=== PATIENT | male | born 1990 | race Caucasian/White ===

== ENCOUNTER 2018-06-28 14:07 | Inpatient (IN) | payer BC ==
[2018-06-28 15:05] LABS: PLATELET COUNT 431 10^3/uL (150-400)
--- NOTE | 2018-06-28 16:40 | EDPHY ---
H & P Stated Complaint: PS - SI - Personal History Current Tetanus/Diphtheria Vaccine: Yes Current Tetanus Diphtheria and Acellular Pertussis (TDAP): Yes - Medical/Surgical History Hx Asthma: No Hx Chronic Respiratory Disease: No Hx Diabetes: No Hx Cardiac Disease: No Hx Renal Disease: No Hx Cirrhosis: No Hx Alcoholism: No Hx HIV/AIDS: No Hx Splenectomy or Spleen Trauma: No - Social History Smoking Status: Former smoker Time Seen by Provider: 06/28/18 14:26 HPI/ROS: CHIEF COMPLAINT: "I just want to by drinking" HISTORY OF PRESENT ILLNESS: 27-year-old male arrives via private vehicle. States that his friends dropped him off at the ER after he made statements of suicidality while drinking alcohol today. He admits to heavy daily alcohol use. His plan to kill himself is to "drink myself to ". He denies self- injurious behavior such as burning or laceration. Denies pill overdose. Denies hallucination. Denies seizure. REVIEW OF SYSTEMS: 10 systems reviewed and negative with the exception of the elements mentioned in the history of present illness PAST MEDICAL & SURGICAL HISTORY: No pertinent medical or surgical history SOCIAL HISTORY: Positive for heavy alcohol use today. PHYSICAL EXAM (Prior to examination, patient consented to physical exam, hands were washed and my usual and customary physical exam procedures followed) 1) GENERAL: Well-developed, well-nourished, alert and oriented. Smells of alcohol. 2) HEAD: Normocephalic, atraumatic 3) HEENT: Pupils equal, round, reactive to light bilaterally. Sclera anicteric. 4) NECK: Full range of motion, no meningeal signs. 5) LUNGS: Clear auscultation bilaterally, no wheezes, no rhonchi, no retractions. 6) HEART: Regular rate and rhythm, no murmur, no heave, no gallop. 7) ABDOMEN: No guarding, no rebound, no focal tenderness, 8) MUSCULOSKELETAL: Moving all extremities, no focal areas of tenderness, no obvious trauma. No peripheral edema or discoloration. 9) BACK: No CVA tenderness, no midline vertebral tenderness, no fluctuance, no step-off, no obvious trauma, no visual or palpable abnormality. 10) SKIN: No rash, no petechiae. 11) Psychiatric: Patient is oriented X 3, there is no agitation. DIFFERENTIAL DIAGNOSIS: In no particular order including but not limited to acute alcohol abuse, suicidal ideation, homicidal ideation (Gerardo Padilla) Constitutional: Initial Vital Signs Heart Rate 120 H 06/28/18 14:10 Respiratory Rate 18 06/28/18 14:10 Blood Pressure 174/112 H 06/28/18 14:10 O2 Sat (%) 99 06/28/18 14:10 O2 Delivery Mode Room Air Medical Decision Making ED Course/Re-evaluation: In consultation with secondary supervising physician Dr. Jayme Ruiz the patient was placed on M1 hold for being danger to self, endorsing suicidal ideation. 5:00 p.m.: Care turned over to Dr. Jayme Ruiz at this time. Patient sobering. Patient's alcohol level at 2:50 p.m. was 373. (Gerardo Padilla) Patient seen by me at 7:00 p.m.. He stable. He is eating dinner. He is watching TV. He understands he is awaiting sobriety and re-evaluation. Care to Dr. Yang at 10:00 p.m. (Jayme Ruiz) 7:30am: I assumed care of this patient at shift change. He presents with suicidal ideation on an M1 hold. He has been seen by mental health and felt appropriate for inpatient treatment of depression and suicidal ideation. Looking for inpatient disposition. 8:45am: accepted to [facility] by Jorge Luis Buck. EMTALA completed. (Jerica Hutton) Differential Diagnosis: Differential diagnosis includes though it is not limited to suicidal ideation, overdose, acute psychosis, self-injury, alcohol withdrawal. (Jerica Hutton) - Data Points Laboratory Results: Laboratory Results 06/28/18 14:50 06/28/18 14:50 Departure - Departure Disposition: [facility] IP Clinical Impression: Alcohol abuse, Suicidal ideation Condition: Fair Referrals: NONE *PRIMARY CARE P,. [Primary Care Provider] - As per Instructions
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
[2018-06-29] MEDS ORDERED: NICOTINE POLACRILEX 2 MG GUM B PRN (12:32)
[2018-06-29] MEDS ORDERED: MAGNESIUM HYDROXIDE 30 ML UDCUP PO PRN (12:32)
[2018-06-29] MEDS ORDERED: ACETAMINOPHEN 325 MG TAB PO PRN (12:32)
[2018-06-29] MEDS ORDERED: MAG HYDROX/AL HYDROX/SIMETH 30 ML UDCUP PO PRN (12:32)
[2018-06-29] MEDS ORDERED: PROMETHAZINE HCL 25 MG SUPPR PR PRN (12:34)
[2018-06-29] MEDS ORDERED: chlordiazePOXIDE 25 MG CAP PO PRN (12:34)
[2018-06-29] MEDS ORDERED: THIAMINE HCL 100 MG TAB PO ONE (12:34)
[2018-06-29] MEDS ORDERED: IBUPROFEN 200 MG TAB PO PRN (12:34)
[2018-06-29] MEDS ORDERED: PROMETHAZINE HCL 25 MG TAB PO PRN (12:34)
--- NOTE | 2018-06-29 14:43 | ASMTBHMTP ---
Master Treatment Plan Master Treatment Plan Answers: Depressed Mood with for: Suicidal Ideation Date: 06/29/2018 Diagnosis on Admission: Major Depressive Disorder Expected length of stay: 3-5 Days Reason for admission: Notes: Pt is a 27 year old single, male who presented to the [facility] ED by private vehicle. Pt had stated that a friend dropped him off at the ED after he made statements of suicidality while drinking alcohol today. He admits to heavy daily drinking and reported drinking today. He had reported a plan to drink himself to . Pt denied a hx of seizures. His BAL was .373 at 14/50 on 06/28/18. Pt was seen by [facility] neon sign installer on 06/29/18 am with a Breathalyzer of 0. M1 hold was initiated by Ed Physician. Per M1 hold: Mario endorses SI with a plan to drink myself to . I think he presents as an inherent danger to himself. Patient's stated presenting problems: Notes: Pt. reports having a "long week of drinking", and "almost attempted suicide". Pt. reports he was planning on overdosing on medications and alcohol. Pt. stated he called a friend, prior to attempting suicide, who brought the patient to the hospital. Patient's goals for treatment: Notes: Pt. stated he wants to "get stabilized getting self back together". Pt. reports wanting to "clarify where I want to go after this". Pt. stated he had participated in IOPs in the past and is considering attending another one upon discharge. Patient's strengths: Notes: Pt. reports he is a "very compassionate individual", "very hard worker", and "ambishious" Identify supports outside of hospital: Notes: Pt. reports feeling supported by his family, close friends and team at work. Discharge criteria: Notes: Suicidal ideation will resolve and patient will have a plan to safely manage recurrent suicidal ideation. Initial disposition plan/considerations: Notes: Pt. stated he could return home, but is considering attending an IOP or other program upon discharge. Master Treatment Plan Required Signatures Psychiatrist signature: Answers: Ebenezer Silveira MD: RN on-shift signature: Answers: RN: Patient signature: Answers: Patient: Date Signed: 06/29/2018 02:42 PM Electronically Signed By:Nimco Nielsen
--- NOTE | 2018-06-29 15:35 | ASMTCMCOM ---
CM Note CM Note Notes: CC met with pt. to complete MTP. Pt. reports he was planning on committing suicide by overdose. Pt. stated he is debating on going to IOP or inpatient program. Pt. reports attending IOPs in the past, including [facility] in November and in [place] in 2017. Pt. reports his family lives in [facility] and is considering staying with them. Pt. denies any current legal issues. Pt. reports drinking 1-2 days per week in the past, but stated he binge drank hard alcohol this past week. Pt. reports using THC edibles once a week. Pt. reports using other substances in the past, but quit years ago. Pt. reports this being his first hospitalization. Pt. stated he currently has no providers or a PCP. Pt. presents as alert, calm, slightly nervous, polite, groomed, good eye contact, and cooperative. Pt. was admitted to the unit this afternoon. CC to provider IOP information for pt. to review tonight and pt. will inform CC which program he would like to attend. Date Signed: 06/29/2018 03:34 PM Electronically Signed By:Nimco Nielsen
--- NOTE | 2018-06-29 19:23 | PDHOSCONS ---
History and Physical - Chief Complaint anxiety - History of Present Illness The patient is a 27yo M w/ PMH anxiety who presented to the ED for suicidal ideation. He has been under increased stress recently, with a recent relationship breakup and multiple family illnesses. He has felt increased anxiety and hopelessness in the last week. He has not been eating much and has been drinking in the last week to try to cope with the stress/anxiety. He has had daily chest pains associated with the stress, which he believes may be panic attacks. These episodes last up to 15 minutes and self subside. The patient thinks he has PTSD from a trauma about 5 years ago. He normally drinks 1 -2 times a week, but this week he has been drinking daily. History Information - Allergies/Home Medication List Allergies/Adverse Reactions: No Known Allergies Allergy (Verified 06/29/18 10:02) Home Medications: NK [No Known Home Meds] 06/29/18 [Last Taken Unknown] I have personally reviewed and updated: family history, medical history, social history - Past Medical History psychiatric history (Anxiety) - Surgical History Additional surgical history: [place] teeth removal, tonsil removal - Family History Positive for: cancer Additional family history: Father-substance abuse. Mother-anxiety, PTSD - Social History Smoking Status: Former smoker Alcohol Use: Other (see HPI) Drug Use: Marijuana (weekly) Additional social history: Lives with roommates. Single. Exercises regularly. Review of Systems Review of Systems: ROS: 10pt was reviewed & negative except for what was stated in HPI & below Physical Exam Physical Exam: Temp Pulse Resp BP Pulse Ox 36.9 C 77 16 155/85 H 95 06/29/18 13:34 06/29/18 17:00 06/29/18 17:00 06/29/18 17:00 06/29/18 17:00 Constitutional: no apparent distress, appears nourished Eyes: EOMI Ears, Nose, Mouth, Throat: moist mucous membranes, hearing normal, ears appear normal Cardiovascular: regular rate and rhythym, no murmur, rub, or gallop Respiratory: no respiratory distress, no rales or rhonchi Gastrointestinal: soft, non-tender abdomen, no palpable masses Genitourinary: no bladder fullness, no bladder tenderness Skin: warm, normal color Musculoskeletal: no muscle tenderness, No asymmetric calves, No abnormal gait Neurologic: AAOx3, CN II-XII Intact Psychiatric: interacting appropriately, No agitated Lymph, Heme, Immunologic: No ecchymoses, No petechiae Lab Data & Imaging Review 06/28/18 14:50 06/28/18 14:50 WBC 8.59 10^3/uL (3.80-9.50) 06/28/18 14:50 RBC 5.80 10^6/uL (4.40-6.38) 06/28/18 14:50 Hgb 17.3 g/dL (13.7-17.5) 06/28/18 14:50 Hct 50.3 % (40.0-51.0) 06/28/18 14:50 MCV 86.7 fL (81.5-99.8) 06/28/18 14:50 MCH 29.8 pg (27.9-34.1) 06/28/18 14:50 MCHC 34.4 g/dL (32.4-36.7) 06/28/18 14:50 RDW 12.5 % (11.5-15.2) 06/28/18 14:50 Plt Count 431 10^3/uL (150-400) H 06/28/18 14:50 MPV 8.4 fL (8.7-11.7) L 06/28/18 14:50 Neut % (Auto) 52.1 % (39.3-74.2) 06/28/18 14:50 Lymph % (Auto) 39.6 % (15.0-45.0) 06/28/18 14:50 Sully % (Auto) 7.1 % (4.5-13.0) 06/28/18 14:50 Eos % (Auto) 0.1 % (0.6-7.6) L 06/28/18 14:50 Baso % (Auto) 0.8 % (0.3-1.7) 06/28/18 14:50 Nucleat RBC Rel Count 0.0 % (0.0-0.2) 06/28/18 14:50 Absolute Neuts (auto) 4.47 10^3/uL (1.70-6.50) 06/28/18 14:50 Absolute Lymphs (auto) 3.40 10^3/uL (1.00-3.00) H 06/28/18 14:50 Absolute Monos (auto) 0.61 10^3/uL (0.30-0.80) 06/28/18 14:50 Absolute Eos (auto) 0.01 10^3/uL (0.03-0.40) L 06/28/18 14:50 Absolute Basos (auto) 0.07 10^3/uL (0.02-0.10) 06/28/18 14:50 Absolute Nucleated RBC 0.00 10^3/uL (0-0.01) 06/28/18 14:50 Immature Gran % 0.3 % (0.0-1.1) 06/28/18 14:50 Immature Gran # 0.03 10^3/uL (0.00-0.10) 06/28/18 14:50 Sodium 139 mEq/L (135-145) 06/28/18 14:50 Potassium 4.0 mEq/L (3.5-5.2) 06/28/18 14:50 Chloride 100 mEq/L (97-110) 06/28/18 14:50 Carbon Dioxide 21 mEq/l (22-31) L 06/28/18 14:50 Anion Gap 18 mEq/L (6-14) H 06/28/18 14:50 BUN 14 mg/dL (7-23) 06/28/18 14:50 Creatinine 1.1 mg/dL (0.7-1.3) 06/28/18 14:50 Estimated GFR > 60 06/28/18 14:50 Glucose 136 mg/dL (70-100) H 06/28/18 14:50 Hemoglobin A1c 5.3 % (4.0-6.0) 06/28/18 14:50 Estim Average Glucose 105 mg/dL (68-126) 06/28/18 14:50 Calcium 9.7 mg/dL (8.5-10.4) 06/28/18 14:50 Total Bilirubin 0.8 mg/dL (0.1-1.4) 06/28/18 14:50 Conjugated Bilirubin 0.2 mg/dL (0.0-0.5) 06/28/18 14:50 Unconjugated Bilirubin 0.6 mg/dL (0.0-1.1) 06/28/18 14:50 AST 30 IU/L (17-59) 06/28/18 14:50 ALT 28 IU/L (21-72) 06/28/18 14:50 Alkaline Phosphatase 71 IU/L (38-126) 06/28/18 14:50 Total Protein 7.8 g/dL (6.3-8.2) 06/28/18 14:50 Albumin 5.0 g/dL (3.5-5.0) 06/28/18 14:50 Triglycerides 213 mg/dL (40-150) H 06/28/18 14:50 Cholesterol 205 mg/dL (140-200) H 06/28/18 14:50 Cholesterol Risk Factr 0.4 (0.2-1.0) 06/28/18 14:50 LDL Cholesterol, Calc 71 mg/dL (60-100) 06/28/18 14:50 LDL Risk Factor 0.4 (0.2-1.0) 06/28/18 14:50 VLDL Cholesterol 43 mg/dL (8-25) H 06/28/18 14:50 Non-HDL Cholesterol 114 mg/dL (90-129) 06/28/18 14:50 HDL Cholesterol 91 mg/dL (40-70) H 06/28/18 14:50 LDL/HDL Ratio 0.78 RATIO (1.00-3.64) L 06/28/18 14:50 Cholesterol/HDL Ratio 2.25 RATIO (1.00-4.97) 06/28/18 14:50 Urine Opiates Screen NEGATIVE (NEGATIVE) 06/28/18 15:52 Urine Barbiturates NEGATIVE (NEGATIVE) 06/28/18 15:52 Ur Phencyclidine Scrn NEGATIVE (NEGATIVE) 06/28/18 15:52 Ur Amphetamine Screen NEGATIVE (NEGATIVE) 06/28/18 15:52 U Benzodiazepines Scrn NEGATIVE (NEGATIVE) 06/28/18 15:52 Urine Cocaine Screen NEGATIVE (NEGATIVE) 06/28/18 15:52 U Marijuana (THC) Screen NEGATIVE (NEGATIVE) 06/28/18 15:52 Ethyl Alcohol 373 mg/dL (0-10) H 06/28/18 14:50 Assessment & Plan Assessment: Adjustment disorder with mood disturbance- anxiety Alcohol abuse (Acute) Suicidal ideation (Acute) -Agree w/ meds in case of alcohol withdrawal, in case he is underreporting his drinking. -Pt is medically clear to proceed with psychiatric/psychologic treatment. Elevated anion gap with low-normal bicarb -likely 2/2 not eating much and drinking a lot of this week. -likely transient. Pt is asymptomatic. No need to monitor as it has likely self-resolved w/ pt eating/drinking today. -it patient feels sick (nausea, vomiting, abd pain, lethargy) would recommend to recheck labs. Thank you for the consultation.
[2018-06-29] MEDS: MELATONIN 3 MG TAB PO PRN (21:36)
[2018-06-30] MEDS: FOLIC ACID 1 MG TAB PO SCH (08:32)
[2018-06-30] MEDS: MULTIVITAMINS 1 EACH TAB PO SCH (08:32)
[2018-06-30] MEDS: THIAMINE HCL 100 MG TAB PO SCH (08:32)
--- NOTE | 2018-06-30 15:59 | ASMTCMCOM ---
CM Note CM Note Notes: Pt. reports feeling "still pretty anxious". Pt. stated he woke up with a "tight chest" and "shaking". Pt. reports he "didn't sleep well last night". Pt. reports he is "super anxious". Pt. stated he is getting enough to eat and attending groups. Pt. stated he does not have any medications to take. Pt. reports needing to call people today, adding he needs to speak with his dad about his plans after discharge. Pt. stated he is leaning towards going to the [facility] IOP. Pt. stated he is "still considering" going to [facility] for an IOP or dual diagnosis program. Pt. denied SI, HI, AVH and paranoia. CC and pt. discussed his sobriety and support in recovery. CC provided pt. with an Alcoholics Anonymous book. Pt. presents as alert, anxious, groomed, good eye contact, polite, and cooperative. Staff report pt. sleeping 8 hours and being medication compliant. Pt. to determine if he wants to attend an IOP or residential treatment for substances. Date Signed: 06/30/2018 03:59 PM Electronically Signed By:Nimco Nielsen
[2018-06-30] MEDS: PROPRANOLOL HCL 10 MG TAB PO SCH ×2 (16:20→21:26)
--- NOTE | 2018-06-30 16:52 | BAPA ---
[f rep st] ADMISSION PSYCHIATRIC ASSESSMENT DATE OF SERVICE: 06/30/2018 CHIEF COMPLAINT: "My friend brought me here, I was thinking of hurting myself. I've been drinking a ll week. Yesterday I was scared because of my thoughts of actually hurting myself." HISTORY OF PRESENT ILLNESS: The patient is a 27-year-old single man who presented to [facility] E D by private vehicle. He said that a friend dropped him off after he made a statement of wanting to kill himself while drinking. He admits to heavy daily drinking and states that he has been binge dri nking for the last couple of weeks. He says that he had a plan to drink himself to or to overd ose on a bottle of Tylenol. The patient was placed on a mental health hold while in the ED, due to d anger to self, and was admitted to the inpatient psychiatric unit. On the inpatient unit the patient presents as calm, cooperative, pleasant. He states that he is no longer having thoughts of wanting to kill himself. He states "I don't want to hurt myself." The patient states that he has a lot of a nxiety. He says that his anxiety has been worse. He says that his anxiety is worse over the last se veral years, since he has been drinking more heavily. The patient states that he has been binge drin david off and on for the last 2 years. He said up until 2 years ago, he would binge about once a shae h, and then he said he would go a couple of months without drinking. He said that over the last 1-2 years that he has been binge drinking on an almost weekly basis. He has done treatment in the past, including intensive outpatient treatment for substance use disorder, and has been on medications, but he says "nothing really helps." The patient states that he would like to stop drinking and he would like to be in a treatment program, but is unsure that he wants to repeat intensive outpatient, so he is looking for individual therapist with experience with substance use disorder. He says that he is willing to consider a residential program, but that would not be his first choice. PAST PSYCHIATRIC HISTORY: The patient states that he first started seeing a therapist when he was a sophomore in college in 2013. He said that he took his Zoloft in 2014 for a month, but it made him f eel "very flat," and he stopped it. It was being prescribed by a psychiatrist in [place] whom he was seeing at that time. He said that he was in an intensive outpatient program at [facility] in [place] fr om 02/12 to 03/2017. He said that he was prescribed Prozac at the time, but says that he did not not ice any change when he was on medication, so he stopped taking it. More recently, the patient was in an intensive outpatient program for substance use disorder at [facility]. He said he completed thei r program in December and January of 2018, and during that time he was prescribed naltrexone and pro pranolol. He says that he took those medications until mid February of 2018, but then when he ran out of medications, he did not follow up with any prescribers. He has not been in any outpatient treatm ent since February. The patient has no prior history of suicide attempts. He has no prior psychiatri c hospitalizations. ALLERGIES: The patient has no known drug allergies. CURRENT MEDICATIONS: The patient is not currently prescribed any medications. PAST MEDICAL HISTORY: The patient does not endorse any prior medical issues. He says that he had hi s wisdom teeth removed and his tonsils removed. No other surgeries. LABORATORY DATA: White cell count was 8.59, hemoglobin 17.3, hematocrit 50.3, platelet count 431. S odium 139, potassium 4.0, chloride 100; BUN 14, creatinine 1.1; glucose 136. Hemoglobin A1c 5.3. Ca lcium 9.7. Total bilirubin 0.8, AST 30, ALT 28, alkaline phosphatase 71. Triglycerides 213, cholest mary 205. Urine drug screen was negative for all drugs of abuse. His blood alcohol level was 373 wh en he was seen in the emergency department. SOCIAL HISTORY: The patient has a younger brother and a younger sister. His siblings live at home w ith his parents in [place]. He says that he has a "strained" relationship with his parents. Th e patient currently lives with 3 roommates. He has a bachelor's degree from the [employer] . Also has a master's degree in public health from [employer]. The patient is currentl y employed full-time at [employer] in [place]. He says he enjoys running and doing CrossFit. He enjo ys spending time with his friends. He admits that most of his friends, however, are drinkers. FAMILY HISTORY: The patient states that his father is a recovering alcoholic. He also notes that hi s mother has a history of anxiety and PTSD. SUBSTANCE USE: Patient says he started drinking alcohol when he was 22 years old. He says his drink ing became problematic when he turned 23. He says that since the age of 23 he has been a binge drink er. He says he would go on binges lasting for several days, approximately every 1-2 months. He says over the last couple of years that his binge drinking has become more frequent. He says that he has been bingeing for several days every few weeks. The patient says that he cannot remember how much h e drinks on typical occasions, because he says he usually drinks until he blacks out. He denies any prior history of seizures. The patient also admits to using marijuana at least once a week. He adolfo es use of any other drugs recently, but says that in the past he has used "a variety of green party drugs." LEGAL HISTORY: Patient denies any current legal issues. MENTAL STATUS EXAMINATION: The patient is a tall man, wearing street clothes (short-sleeve shirt and pants), and has dyed blonde hair. He is alert and oriented x4. His demeanor is appropriate, pleasa nt. Speech rate and volume are within normal limits. His intellectual function appears to be above average based upon his vocabulary, fund of knowledge, and educational history. He currently denies f eeling sad, helpless, hopeless, worthless. He does endorse feeling anxious and having trouble sleepi ng. He denies any thoughts, plans or intents to hurt himself or anyone else. The patient denies sym ptoms of psychosis. He does not have pressured speech, racing thoughts, grandiose delusions, elevate d or elated mood, increase in goal-directed activity, or decreased need for sleep. His insight and j udgment are both impaired, as evidenced by his continued binge drinking, despite negative consequence s. IMPRESSION: 1. Substance-induced mood disorder versus major depressive disorder. 2. Rule out generalized anxiety disorder. 3. Alcohol use disorder, severe. 4. Cannabis use disorder, unknown severity. 5. Patient has no current outpatient providers. He has a strained relationship with his parents. M ost of his peer support system are heavy drinkers. The patient has trouble staying sober and is not currently participating in any type of recovery program. PLAN: 1. Admit the patient to the inpatient behavioral health services unit on an M1 hold. 2. Monitor closely for safety. The patient is currently not exhibiting any signs of unsafe behavior . He is denying any thoughts, plans or intents to hurt himself or anyone else. He is acting appropr iately. 3. We will continue to monitor and observe the patient. This MD talked to the patient at length abo ut the risks, benefits, and side effects of a variety of different classes of medications, including anti-craving medications like naltrexone and acamprosate; antianxiety medications, including proprano lol (which he has taken in the past with good effect); sedatives and hypnotics for sleep; as well as antidepressant medications, including SSRIs, for long-term management of depression and anxiety. Rita sebastian MD explained to the patient at length the effects of alcohol use on the brain, in particular the ne gative effects of alcohol on mood, cognition, sleep, anxiety, attention, focus, judgment, decision-ma david. The patient states that he had anxiety when he was younger, prior to drinking alcohol, but say s that his anxiety has become "much worse" over the last couple of years when he has been binge drink ing more frequently. explained to the patient that it takes several months, up to a year, for pat ients, once they become sober, to have good sleep. The patient states that when he was at [facility], he saw a psychiatrist there who prescribed propranolol and naltrexone. He said he did not notice that the naltrexone had any effect on his craving, but he said that he felt that the propr anolol helped reduce some of his anxiety. After discussing the risks, benefits, and side effects of propranolol, the patient did give informed consent to start treatment with propranolol to help manage his anxiety while he is on the unit. stressed to the patient that propranolol and other antianxi ety medications or short-term fixes for long-term problems. They have immediate onset, but short dur ations of action. This makes the medications unsuitable for long-term treatment of anxiety disorder. MD suggested that the patient may have a comorbid anxiety and depression in addition to his substan ce use, although it is highly likely that his anxiety and depressive symptoms are substance induced. MD stressed that it would be impossible to make a determination until the patient was sober for a bustamante fficient period of time, while being monitored by a professional. Since the patient has been drinkin g up until the time he was admitted to the unit, it would be difficult to rule in or out major depres dayanara versus substance-induced depression or generalized anxiety disorder versus substance-induced anx iety disorder, while the patient was in the hospital; but MD encouraged the patient to see providers on an outpatient basis, including a psychiatrist and a certified addictions counselor, to help clarif y the most accurate diagnosis for him. 4. and the human services case manager both met with the patient and talked at length about various options for ongoing treatment and aftercare planning. MD talked to the patient about the differences between ind ividual psychotherapy with a certified addictions counselor, 12-step peer support groups, intensive o utpatient programs for substance use disorders, as well as residential treatment. The patient was he sitant to do residential treatment because of the time commitment and the financial burden, but he al so said that he had a negative experience at [facility] in their intensive outpatient program, and he was reluctant to do another intensive program. He said that what he would prefer would be to do isabelle vidual psychotherapy with a certified addictions counselor. This MD said that given the patient's pr ior history of chronic alcohol use, his recent 2-year history of serious binge drinking to the point of blacking out, and the fact that the patient has failed 2 intensive outpatient programs within the last 2 years, MD strongly recommended that patient consider doing a residential treatment program wit h a step-down to an IOP or sober living environment. The patient said that he would think about it a nd talk with MD and human services case manager tomorrow before his mental health hold . also stressed to the patient that antidepressant medications are the first-line treatment for anxiety and depression, and that they have a longer-term effect on managing those problems than medications like propranolol , which are targeted purely at treating symptoms. The patient said that he did not feel like SSRIs h ad been very helpful for him in the past. MD encouraged him to think of other antidepressant medicat ions, including the SNRIs. The patient said that he would think about it, but he did not want to sta rt antidepressant medications while he was in the hospital. 5. The patient was started on a CIWA at time of admission. He has not scored high enough to warrant treatment with Librium. His score on the CIWA protocol this morning was a 0. He does report subjec tive anxiety. He denies other symptoms of withdrawal. Plan to start the patient on propranolol 10 m g p.o. t.i.d. to address the anxiety and melatonin 3-6 mg p.o. q.h.s. p.r.n. for insomnia. 6. Estimated length of stay is 1-2 days. /[id number]/MODL
[2018-07-01] MEDS: FOLIC ACID 1 MG TAB PO SCH (08:43)
[2018-07-01] MEDS: THIAMINE HCL 100 MG TAB PO SCH (08:43)
[2018-07-01] MEDS: PROPRANOLOL HCL 10 MG TAB PO SCH ×3 (08:43→21:18)
[2018-07-01] MEDS: MULTIVITAMINS 1 EACH TAB PO SCH (08:43)
--- NOTE | 2018-07-01 19:18 | SOAPPROG ---
SOAP Progress Note Assessment/Plan: Assessment: The patient is a 27yo M w/ depression and anxiety who presented to the ED for suicidal ideation. He has been under increased stress recently, with a recent relationship breakup and multiple family illnesses. He has felt increased anxiety and hopelessness in the last week. He has not been eating much and has been drinking in the last week to try to cope with the stress/anxiety. He has had daily chest pains associated with the stress, which he believes may be panic attacks. Plan: 07/01/18 19:15 1. Patient says anxiety is "much better" since starting Propranolol. He denies any panic attacks since he's been in hospital. 2. Patient reports depression is improved and he denies SI. 3. Patient says he has decided he'd like to begin IOP after discharge near [place]. 4. Patient agrees to sign in voluntary tonight so personal carer can try to arrange follow up with IOP after discharge. 5. Likely to leave Monday after f/u appointments settled. 6. Voluntary Subjective: Patient reports anxiety is "better" today after taking Propranolol. He also reports sleeping better last night. He says he doesn't feel as anxious or depressed since his admission. He is hopeful about future and wants to start IOP after discharge. However, he wants to stay in [place] for IOP. He had previously considered programs in [place] and [place]. Patient will sing in voluntary so CM can help arrange follow up appointments tomorrow. Objective: Vital Signs Temp Pulse Resp BP Pulse Ox 36.8 C 73 15 127/73 H 97 07/01/18 18:00 07/01/18 18:00 07/01/18 18:00 07/01/18 18:00 07/01/18 18:00 MSE: Affect: Euthymic Mood: "Good" TP: Linear, goal directed TC: Denies any SI/HI Insight/Judgment: Poor - Time Spent With Patient Time Spent With Patient: 15" - Pending Discharge Pending Discharge Within 24 Hours: Yes Pending Discharge Within 48 Hours: No Pending Discharge Date: 07/02/18 (Likely d/c tomorrow) Pending Discharge Time: 11:00 ICD10 Worksheet Patient Problems: Problems Problem Status Onset Alcohol abuse Acute Suicidal ideation Acute
[2018-07-01] MEDS: MELATONIN 3 MG TAB PO PRN (21:28)
[2018-07-02 06:54] VITALS: BP 124/74
[2018-07-02] MEDS: THIAMINE HCL 100 MG TAB PO SCH (09:11)
[2018-07-02] MEDS: FOLIC ACID 1 MG TAB PO SCH (09:11)
[2018-07-02] MEDS: MULTIVITAMINS 1 EACH TAB PO SCH (09:11)
[2018-07-02] MEDS: PROPRANOLOL HCL 10 MG TAB PO SCH (09:11)
--- NOTE | 2018-07-02 12:12 | BDS ---
[f rep st] BEHAVIORAL HEALTH DISCHARGE SUMMARY REASON FOR ADMISSION: From the ED note dated 06/28/2018, the patient arrived to the ED by private vehicle. The patient reported that his friends dropped him off after he made statements of suicidality while drinking alcohol. The patient admitted to heavy alcohol use prior to presenting to the emergency room. The patient's plan to kill himself was to "drink myself to ." The patient was admitted involuntarily and on an M1 hold due to being a danger to himself. The patient was admitted for safety, crisis stabilization, and medication management. ADMITTING DIAGNOSES: 1. Generalized anxiety disorder. 2. Alcohol use disorder, severe, dependence. ADMISSION PHYSICAL EXAM: Patient was seen for the hospitalist history and physical consult on 06/29/2018, for medical clearance for inpatient psychiatric hospitalization and treatment. The patient was medically cleared for inpatient psychiatric hospitalization and treatment. For further details, please refer to hospitalist H and P consult dated 06/29/2018. ADMISSION LABS: 1. CBC within normal limits, except platelet count was elevated at 431. MPV low at 8.4, eosinophils low at 0.1, absolute lymphocytes elevated at 3.40, absolute eosinophils low at 0.01. 2. BMP within normal limits, except carbon dioxide was low at 21, ion gap elevated at 18, and glucose elevated at 136. 3. Hemoglobin A1c within normal limits at 5.3. 4. Liver function within normal limits. 5. Lipid panel within normal limits except triglycerides were elevated at 213, cholesterol elevated at 205, VLDL cholesterol elevated at 43, HDL cholesterol elevated at 81, and LDL/HDL ratio low at 0.78. 6. Toxicology screen negative for all the substances that were screened. Ethyl alcohol level was 373. MAJOR PROCEDURES OR TESTS: None. HOSPITAL COURSE: The most prominent symptoms and behaviors while the patient was here were reports of moderate anxiety. Treatment modalities utilized were milieu and group therapy. Propranolol 10 mg p.o. three times daily was continued to target anxiety symptoms, it was tolerated with no report of side effects and with good response. CIWA protocol was placed and continued during hospitalization to monitor for withdrawal from alcohol. Patient has improved considerably with no signs of psychiatric symptoms and no psychiatric symptoms expressed. Patient reports he has improved since admission, states to be in stable condition, feels safe to discharge, and he contracts for safety. Patients response to treatment was good. There were no adverse or unexpected results of treatment. The patient was safe throughout stay, active in treatment , engaged in groups, and was appropriate with staff. Patient met with treatment team prior to discharge to assess readiness to discharge and review discharge plan. The treatment team consensus is the patient in stable condition , has a safe discharge plan, and is ready to discharge today. CONDITION AT DISCHARGE: Patient is in stable condition and is no longer a danger to self or others, and is not gravely disabled due to mental illness. Patient is no longer in need of inpatient level of care, and can be safely and effectively treated within the community. The patients level of risk at time of discharge is low. MSE: The patient is casually dressed and with good hygiene , and looks stated age. Patient is sitting, posture is upright, and position is relaxed. Patient appears awake, alert, and responds appropriately and reasonably during interview. Patient is engaged, relates well to interviewer, and emotional facial expression is appropriate to situation and changes appropriately with topic. Patient is cooperative, makes comfortable eye contact , and movements are voluntary, deliberate, coordinated, and smooth and even with no inappropriate movements. Patient makes laryngeal sounds effortlessly and shares conversation appropriately; pace of conversation is appropriate, and stream of talking is fluent; articulation is clear and understandable; word choice is effortless and appropriate for education level; completes sentences, occasionally pausing to think; rate and volume are appropriate for interview and setting. Patient reports mood as euthymic. Patients affect is stable with full variable range, congruent with mood, and appropriate to speech and circumstances. Patient has linear and logical thinking, with no loose associations, tangential thought, thought blocking, concrete thinking, or any other signs of formal thought disorder. Patient denies suicidal and homicidal ideation, and denies hallucinations and delusions. Patient appears to be a reliable historian with sound judgement and good insight into current condition. Patient has no apparent dysfunction in recent or remote memory noted , and no evidence of gross cognitive dysfunction noted at any point during the interview. DISCHARGE DIAGNOSES: 1. Generalized anxiety disorder. 2. Alcohol use disorder, severe. CURRENT MEDICATIONS: After reviewing options, risks and benefits with the patient, patient agrees to continue propranolol 10 mg p.o. three times daily. The patient requests a prescription for this medication at time of discharge. A prescription for 30 days is provided. Prescription is reviewed with the patient at time of discharge to ensure accuracy and patient understanding. DISPOSITION: The patient left the hospital independently and voluntarily, and plans to return to his home. The patient also plans to engage in intensive outpatient therapy after discharge. FOLLOWUP: financial coordinator reports the appropriate outpatient follow-up services have been established and outpatient appointments have been scheduled. The patient received written instructions with times and dates of outpatient follow-up appointments. The following follow-up recommendations were provided to the patient at discharge: Continue psychotropic medications as prescribed and attend appointments as scheduled. Report any side effects to a psychiatric outpatient provider, a primary care provider, or other health pet caretaker. Address any questions or problems concerning the psychotropic medications with a psychiatric outpatient provider, a primary care provider, or other health pet caretaker. Contact [facility] or [facility], or go to the nearest emergency room, if you are ever a danger to yourself/others, or unable to care for yourself. As soon as possible, establish a routine medication management treatment with a psychiatric provider, establish routine therapy appointments, and follow-up with a primary care provider. SUBSTANCE ABUSE BRIEF INTERVENTION: Brief intervention regarding the risks of alcohol abuse is provided to patient with goal to reduce the risk of harm that could result from the continued use of alcohol, with the general aim to investigate the problem, raise awareness of problem, develop a solution with the patient, recommend a specific change or activity, and motivate the patient toward change. Assess substance abuse behavior and give supportive advice about harm reduction, recommend a reduction in hazardous/at-risk consumption patterns, and facilitate referrals for additional specialized treatment with child daycare worker. Intermediate goal is for the patient to quit and attend IOP program. Intervention focus on intermediate goals to allow for more immediate success in the treatment process to keep the patient motivated. Review following with patient: Alcohol/Binge Drinking risks: short-term: injuries, violence, alcohol poisoning, risky sexual behaviors. Long-term: high blood pressure, stroke, liver disease, digestive problems, cancer, learning and memory problems, depression and anxiety, social problems, and alcohol dependence. OUTPATIENT SUBSTANCE ABUSE TREATMENT: Patient referred to outpatient provider and treatment for continued treatment related to substance abuse. LEGAL COURSE: The patient was admitted on an M1 hold for involuntary inpatient psychiatric hospitalization. Patient discharged today independently and voluntarily. ATTITUDE AT TIME OF DISCHARGE: The patients attitude was positive at time of discharge, and patient reports looking forward to discharging today. The patient reports he feels safe to discharge, is no longer a danger to himself or others, is in stable condition, and contracts for safety. Patient states he will continue medications as prescribed, and establish medication management treatment with an outpatient provider after discharge. Patient reports he understands the information that has been provided to him, and he understands, accepts, and agrees to psychotropic medications. Patient describes internal protective factors as the coping skills he has learned while hospitalized here, and he plans to continue to practice these coping skills after discharge. LABS AND RADIOLOGY STUDIES: There were no pending labs or studies at time of discharge. ADVANCE DIRECTIVES: There were no advance directives on file, and patient was full code during this hospitalization. The following psychotropic medication treatment informed consent and recommendations were provided to the patient at time of discharge. Patient reports he understands, accepts, and agrees to the information that has been provided. PSYCHOTROPIC MEDICATION TREATMENT INFORMED CONSENT and RECOMMENDATIONS: Review nature of condition, diagnosis, and prognosis. Review nature and purpose of psychotropic medication treatment. Review type of psychotropic medications being prescribed. Review risk and benefits of psychotropic medication treatment. Review probable length of time will need to take medications. Review risk and benefits of not undergoing psychotropic medication treatment. Review alternative treatments to psychotropic medications. Review psychotropic medications contraindications, side effects, and importance of reporting any side effects to a psychiatric provider, primary care provider, or other health pet caretaker. Review importance of asking a psychiatric provider or primary care provider any questions or problems concerning the psychotropic medications. Review safety plan and the importance to contact [facility] or [facility] , or go to the nearest emergency room, if ever a danger to yourself/others, or unable to care for yourself. Recommend upon discharge to establish routine medication management treatment with a psychiatric provider, establish routine therapy appointments, and follow-up with a primary care provider. Verify patient understands, accepts, and agrees to the information that has been provided. /[id number]/MODL MTDD
--- NOTE | 2018-07-04 17:12 | ASMTTCLDSP ---
[facility] Discharge Disposition Disposition: Answers: Admit Disposition Notes: Notes: Late Entry Note from 06/29/18: In consultation with [facility] ED physician, Lolly Hutton MD and on-call clinician, Jorge Luis Buck APN, both concurred that pt appears to meet 27-65 criteria requiring psychiatric hospitalization as pt appears to be at risk of harm to self due to a mental illness condition. Pt was read the Patient Rights and Responsibilities Statement on 06/29/18 original placed on chart, and was given photocopy of Rights. Pt (signed Patient Rights. Pt was given the [facility] prohibited belongings list while in the ED. Was patient given the Answers: Yes Inpatient Behavioral Health Prohibited Belongings List while in the ED? For inpatient Jorge Luis Buck APN admission, the following psychiatrist agreed to accept patient for admission to Behavioral Health ([facility]): Type of Hold: Answers: M1/72-hour Hold Hold initiated by: Answers: Police Date Signed: 07/04/2018 05:11 PM Electronically Signed By:Zahraa Barclay
== END 2018-07-02 14:02 | disposition home or self-care (01) | DRG 880 ==
LOC: BBEH 06-29 11:00
PROVIDERS: ADMIT Registered Nurse; ATTEND Registered Nurse
DX: F41.1 Generalized anxiety disorder (principal); Z72.89 Other problems related to lifestyle; Y90.8 Blood alcohol level of 240 mg/100 ml or more
CPT/HCPCS: 80305; G0480